=== PATIENT | male | born 1985 | race Hispanic/Latino ===

== ENCOUNTER → 2020-08-23 09:04 | Outpatient (CLI) | payer OTHER, SELFPAY ==
--- NOTE | 2020-08-23 | DI.MRI.S_ITS ---
PROCEDURE: MR KNEE RT WO CON INDICATIONS: Pain in right knee TECHNIQUE: Noncontrast sagittal PD fast spin echo and T2 fast spin echo with fat saturation, sagittal 3-D FLASH with fat saturation; coronal T1 spin echo and PD fast spin echo with fat saturation, and axial PD fast spin echo with fat saturation through the knee. COMPARISON: None. FINDINGS: Image quality: Excellent. Menisci: There is horizontal tear involving the posterior horn of the medial meniscus. The lateral meniscus demonstrates normal morphology and internal signal. The meniscal root ligaments appear intact. Cruciate ligaments: Thickening and striated appearance of anterior cruciate ligament suspicious for partial tear/scarring or mucoid degeneration. The the posterior cruciate ligament is intact. Medial structures: The medial collateral ligament appears intact. The semimembranosus tendon insertions and meniscocapsular junction appear intact. Visualized portions of the pes anserinus tendons appear normal. No abnormal bursal fluid. Lateral structures: The lateral collateral ligament, the biceps femoris tendon appear intact. The popliteus tendon appears normal. Iliotibial band appears normal. Anterior structures: The quadriceps and patellar tendons appear intact. Patellar alignment is normal. No femoral trochlear dysplasia or ventral trochlear prominence. No edema in the infrapatellar fat pad. Bones and cartilage: No bone marrow contusions or fractures. 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 Joint space: There is small knee joint effusion. Tiny Muñoz's cyst. Normal appearing synovial plicae are incidentally noted. IMPRESSION: 1. Partial tear/scarring versus mucoid degeneration of ACL. 2. Horizontal tear of the posterior horn of the medial meniscus. 3. Small knee joint effusion. 4. Mild tricompartmental chondromalacia. Dictated by: Liu Mcclure M.D. on 08/23/2020 at 11:11 Approved by: Liu Mcclure M.D. on 08/23/2020 at 11:30
== END ==
PROVIDERS: Referring Provider Student in an Organized Health Care Education/Training Program; Visit Provider Student in an Organized Health Care Education/Training Program
DX: M25.561 Pain in right knee (principal); S83.241A Other tear of medial meniscus, current injury, right knee, initial encounter; M25.461 Effusion, right knee; M94.261 Chondromalacia, right knee
CPT/HCPCS: 73721